=== PATIENT | male | born 1950 | race Caucasian/White ===

== ENCOUNTER 2018-04-15 22:22 | Inpatient (IN) | payer OTHER ==
[~2018-04-15] VITALS: Ht 170.2 cm; Wt 74.4 kg
--- NOTE | 2018-04-15 22:22 | NUR ---
Patient BIBA BLS accompanied by [employer], transferred to bed 8. RN evaluating patient at bedside.
--- NOTE | 2018-04-15 22:26 | NUR ---
Dr. Delgadillo evaluating patient at bedside.
[2018-04-15 22:33] VITALS: BP 95/51
--- NOTE | 2018-04-15 22:38 | NUR ---
PT BIBA FOR POSSIBLE R SHOULDER DISLOCATION. OFFICER VENTURA STATES THAT HE HEARD PT ARM CLICK WHILE HE WAS ATTEMPTING TO PUT PT IN HANDCUFFS FOR THROWING ROCKS AT BUILDINGS. PT COMPLAINS OF 10/10 PAIN IN R ARM, R ARM GRIB WEAK, UNABLE TO LIFT R ARM, PT DENIES TINGLING IN R ARM OR FINGERS, CAP REFIL <3 SEC. NOTE TAKER STATED PT ADMITTED TO DRINKING. PT IS AAOX4, NON-COOPERATIVE, CURSING AT STAFF. SIDE RAILS UP X2, BED IN LOWEST POSITION, HOB ELEVATED. WILL CONTINUE TO MONITOR.
[2018-04-15] MEDS ORDERED: NACL 0.9% 1,000 ML IV ONE (22:45)
--- NOTE | 2018-04-15 22:50 | NUR ---
solids control technician at bedside.
[2018-04-15] MEDS ORDERED: KETAMINE 10 MG/ML UD SYR **ER IVP ONE ×2 (22:55→23:45)
[2018-04-15] MEDS ORDERED: MIDAZOLAM 2 MG/2 ML VIAL IVP ONE (22:55)
[2018-04-15] MEDS ORDERED: MORPHINE SULFATE 4 MG/ML SYR IVP ONE (22:55)
--- NOTE | 2018-04-15 23:05 | NUR ---
CONSENT FOR REDUCTION OF RIGHT HUMERUS FRACTURE DONE AT BEDSIDE AT THIS TIME.
[2018-04-15 23:15] LABS: BASOPHILS % (AUTO) 0.4 % (0.0-2.0); EOSINOPHILS # (AUTO) 0.3 K/uL (0-0.4); EOSINOPHILS % (AUTO) 3.5 % (0.0-4.0); HEMATOCRIT 41.7 % (36-52); LYMPHOCYTES # (AUTO) 4.5 K/uL (2.0-11.5); LYMPHOCYTES % (AUTO) 45.6 % (20.5-51.1); MEAN CORPUSCULAR HEMOGLOBIN 33 pg (27-31); MEAN CORPUSCULAR HGB CONC 34 g/dL (33-37); MEAN CORPUSCULAR VOLUME 97.6 fL (80-94); MONOCYTES # (AUTO) 0.9 K/uL (0.8-1.0); MONOCYTES % (AUTO) 9.2 % (1.7-9.3); NEUTROPHILS # (AUTO) 4.1 K/uL (1.8-7.7); PLATELET COUNT (AUTO) 146 K/uL (140-450); RED BLOOD CELL COUNT(AUTO) 4.27 MIL/uL (4.20-6.10); RED CELL DISTRIBUTION WIDTH 13.3 % (11.6-13.7); WHITE BLOOD COUNT (AUTO) 9.8 K/uL (4.8-10.8)
--- NOTE | 2018-04-15 23:19 | NUR ---
Dr. Delgadillo, RT, RN and EMT at bedside for reduction of right humeral fracture with moderate sedation.
--- NOTE | 2018-04-15 23:20 | NUR ---
BEDSIDE PROCEDURE TIME OUT CALLED. VERRIFIED PT NAME, PROCEDURE, AND LIMB
--- NOTE | 2018-04-15 23:21 | NUR ---
FOR MODERATE SEDATION RECORD AND INTRA-PROCEDURE/RECOVERY SEE MODERATE SEDATION SHEET AND INTRA-PROCEDURE/RECOVERY SHEET.
[2018-04-15 23:24] LABS: ANION GAP 10.4 (8-16); CARBON DIOXIDE 24.7 mmol/L (21-32); POTASSIUM 4.1 mmol/L (3.5-5.1)
[2018-04-15 23:25] LABS: NEUTROPHILS % (AUTO) 41.3 % (42.2-75.2)
--- NOTE | 2018-04-15 23:29 | NUR ---
Fred burrell in ED - 04/15/18 at [address] Delgadillo, RT, RN and EMT at bedside for reduction of right humeral fracture with moderate sedation.
[2018-04-15 23:31] LABS: ALBUMIN 3.7 g/dL (3.4-5.0); TOTAL BILIRUBIN 0.3 mg/dL (0.0-1.0)
--- NOTE | 2018-04-15 23:35 | NUR ---
valve technician at bedside for post-reduction XRAY.
--- NOTE | 2018-04-15 23:36 | NUR ---
Dr. Delgadillo, RT, RN and EMT at bedside for second attempt of reduction of right humeral fracture with moderate sedation.
[2018-04-16] MEDS: NACL 0.9% 1,000 ML IV SCH ×3 (00:55→20:59)
[2018-04-16] MEDS ORDERED: DOCUSATE SODIUM 100 MG GELCAP PO PRN (00:55)
[2018-04-16] MEDS ORDERED: HYDROcodone/APAP 5/325 MG 1 TAB TAB PO PRN (00:55)
[2018-04-16] MEDS ORDERED: MORPHINE SULFATE 2 MG/ML SYR IVP PRN (00:55)
[2018-04-16] MEDS ORDERED: ACETAMINOPHEN 325 MG TAB PO PRN (00:55)
[2018-04-16] MEDS ORDERED: ONDANSETRON 4 MG/2 ML VIAL IM/IVP PRN (00:55)
[2018-04-16] MEDS ORDERED: LORazepam 2 MG/ML VIAL IM/IVP PRN ×2 (00:55)
[2018-04-16] MEDS ORDERED: MULTIVITAMIN-12 10 ML, THIAMINE 100 MG, MAGNESIUM SULFATE 50% 2,000 MG, FOLIC ACID 1 MG... IV SCH ×5 (01:15)
[2018-04-16] MEDS ORDERED: KETAMINE 10 MG/ML UD SYR **ER IVP ONE (01:20)
[2018-04-16 01:30] VITALS: BP 100/44
[2018-04-16 01:30] LABS: PROTHROMBIN TIME 10.2 secs (10.8-13.4)
--- NOTE | 2018-04-16 01:30 | NUR ---
RECEIVED BEDSIDE REPOT FROM SCENE PAINTER, PATIENT IN BED, ON RA, SCREAMING "WHAT AM I DOING HERE?" WHEN EXPLAINED PATIENT STATED "I'M NOT DRUNK, MY ARM AIN'T BROKEN". BP 100/44. PATIENT DENIES PAIN, IV IN LEFT HAND, NOT PATENT, D/C, CATH INTACT, STARTED NEW IV IN LEFT AC, 20 G. MRSA COLLECTED SENT TO LAB. NOTED RIGHT TOE INJURY, PICTURE TAKEN. WILL CONTINUE TO MONITOR.
[2018-04-16 01:37] LABS: PHOSPHORUS 4.7 mg/dL (2.5-4.9); THYROID STIMULATING HORMONE 9.32 uIU/mL (0.34-3.74)
--- NOTE | 2018-04-16 01:43 | NUR ---
Patient will be admitted to care of Tammy MICHEL Admited to TELE. Will go to room 110B. Belongings list completed. Report to [facility].
--- NOTE | 2018-04-16 02:00 | NUR ---
PATIENT WANTS TO LEAVE AMA DUE TO WANTING TO SMOKE CIGARETTE, PER RESIDENT OKAY TO GIVE ATIVAN IF BP ABOVE 100. BP 102/66. WILL NOT GIVE ATIVAN. WILL PLACE ON 1:1 SITTER.
--- NOTE | 2018-04-16 02:30 | NUR ---
CALL FROM PHARMACY REGARDING BANANA BAG, MG 2.0. DR KRAMER, STATED OKAY TO GIVE BANANA BAG. WILL GIVE.
[2018-04-16] MEDS ORDERED: MULTIVITAMIN-12 10 ML VIAL IV ONE (02:34)
[2018-04-16] MEDS ORDERED: FOLIC ACID 5 MG/ML SYR ONE (02:34)
[2018-04-16] MEDS ORDERED: THIAMINE 200 MG/2 ML VIAL ONE (02:34)
--- NOTE | 2018-04-16 02:45 | NUR ---
PATIENT REFUSED TO GIVE URINE SAMPLE FOR UA ANS DRUG SCREEN. DR KRAMER. PATIENT REFUSED DRUG SCREEN.
[2018-04-16] MEDS ORDERED: MAG SULF 2000 MG/WATER PREMIX 50 ML IV ONE (02:51)
[2018-04-16] MEDS ORDERED: MULTIVITAMIN-12 10 ML, THIAMINE 100 MG, FOLIC ACID 1 MG in NACL 0.9% 1,000 ML IV SCH (02:55)
[2018-04-16] MEDS ORDERED: MAG SULF 2000 MG/WATER PREMIX 50 ML IV SCH (03:00)
--- NOTE | 2018-04-16 03:14 | NUR ---
PT HAD ORDER FOR BANANA BAG.PHARMACY CALLED AND TALKED TO ROBER RN PT'S NURSE THAT BECAUSE PT'S MAG LEVEL IS 2.0 SO CAN NOT HAVE MAG.MAG IS ONE OF THE BANANA BAG'S CONTENT.ROBER ASKED OF RESIDENT.SHE SAID GIVE IT TO PT.AFTER WE MIXED BANANA BAG THAT HAS MAG ALSO.PHARMACY TOOK OUT MAG FROM BANANA BAG.I ASKED IF NEEDS MIX ANOTHER BAG WITHOUT MAG.BUT SHE SAID THAT'S OK GIVE BANANA BAG THAT YOU ALREADY MIX IT.ROBER STARTED THAT.
--- NOTE | 2018-04-16 03:50 | NUR ---
RESIDENT STATED OKAY TO START BANANA BAG AT 50 ML/HR.
[2018-04-16 04:00] VITALS: BP 106/66
--- NOTE | 2018-04-16 04:10 | NUR ---
PATIENT REFUSED TO GIVE URINE SAMPLE AND WEAR SCD. PATIENT REFUSED TO DO ORTHOSTATIC EXAM. STATED "THERE'S NOTHING WRONG WITH MY HEART GOD DAMMIT!".
--- NOTE | 2018-04-16 05:52 | NUR ---
PATIENT ASLEEP IN BED, NO SIGNS OF DISTRESS WILL CONTINUE TO MONITOR.
--- NOTE | 2018-04-16 06:55 | NUR ---
PATIENT REFUSED TO GO TO HAVE CT SCAN AT THIS TIME. CALLED RADIOLOGY WILL TRY AGAIN AFTER BREAKFAST. US SAMPLE COLLECTED.
[2018-04-16 07:31] LABS: BASOPHILS % (AUTO) 0.2 % (0.0-2.0); EOSINOPHILS % (AUTO) 0.3 % (0.0-4.0); HEMATOCRIT 40.1 % (36-52); HEMOGLOBIN 13.5 g/dL (12.0-18.0); LYMPHOCYTES # (AUTO) 2.6 K/uL (2.0-11.5); LYMPHOCYTES % (AUTO) 27.2 % (20.5-51.1); MEAN CORPUSCULAR HEMOGLOBIN 33 pg (27-31); MEAN CORPUSCULAR HGB CONC 34 g/dL (33-37); MONOCYTES # (AUTO) 0.7 K/uL (0.8-1.0); MONOCYTES % (AUTO) 7.9 % (1.7-9.3); NEUTROPHILS # (AUTO) 6.1 K/uL (1.8-7.7); NEUTROPHILS % (AUTO) 64.4 % (42.2-75.2); PLATELET COUNT (AUTO) 140 K/uL (140-450); RED BLOOD CELL COUNT(AUTO) 4.09 MIL/uL (4.20-6.10); RED CELL DISTRIBUTION WIDTH 13.1 % (11.6-13.7); WHITE BLOOD COUNT (AUTO) 9.5 K/uL (4.8-10.8)
--- NOTE | 2018-04-16 07:32 | NUR ---
ENDORSED PATIENT TO DAY SHIFT NURSE, PATIENT STABLE.
[2018-04-16 07:34] LABS: APPEARANCE,URINE CLEAR (CLEAR); BILIRUBIN,URINE NEGATIVE (NEGATIVE); BLOOD, URINE NEGATIVE (NEGATIVE); COLOR,URINE YELLOW (YELLOW); LEUKOCYTE ESTERASE ,URINE NEGATIVE (NEGATIVE); NITRITE, URINE NEGATIVE (NEGATIVE); UGLUCOSE NEGATIVE (NEGATIVE)
[2018-04-16 07:45] LABS: ANION GAP 15.6 (8-16); CARBON DIOXIDE 21.2 mmol/L (21-32); CREATININE 0.9 mg/dL (0.7-1.3); POTASSIUM 4.8 mmol/L (3.5-5.1)
[2018-04-16 07:47] LABS: BARBITURATE, URINE NEG. ng/ml (NEG <=200); BENZODIAZEPINE, URINE POS. ng/mL (NEG <=200); CANNABINOID, URINE NEG. ng/mL (NEG <=50); COCAINE, URINE NEG. ng/mL (NEG <=300); OPIATE, URINE NEG. ng/mL (NEG <=2000); PHENCYCLIDINE SCREEN,URINE NEG. ng/mL (NEG <=25)
[2018-04-16 07:57] LABS: PHOSPHORUS 4.4 mg/dL (2.5-4.9)
[2018-04-16 08:00] VITALS: BP 120/63
--- NOTE | 2018-04-16 08:00 | NUR ---
PATIENT WAS AWAKE, ALERT, EATING BREAKFAST COMFORTABLY. RESPIRATION EVEN, UNLABOR ON ROOM AIR. SKIN DRY AND WARM. IV PATENT AND INTACT. COMPLAINED OF RIGHT ARM PAIN 8/10, WILL MEDICATE PER ORDER. PLAN OF CARE WAS DISCUSSED WITH PATIENT. BED AT LOW POSITION, SIDE RAILS UP. CALL LIGHT WITHIN REACH. 1:1 SITTER ENSURED
[2018-04-16] MEDS: NICOTINE TRANSD SYS 7 MG/24 HR PATCH TD SCH (09:00)
[2018-04-16] MEDS ORDERED: FOLIC ACID 1 MG TAB PO SCH (09:00)
[2018-04-16] MEDS ORDERED: MULTIVITAMIN 1 TAB PO SCH (09:00)
[2018-04-16] MEDS ORDERED: THIAMINE 200 MG/2 ML VIAL IM SCH (09:00)
[2018-04-16] MEDS: chlordiazePOXIDE 25 MG CAP PO SCH ×3 (09:33→16:36)
[2018-04-16] MEDS: MORPHINE SULFATE 2 MG/ML SYR IVP PRN (09:34)
--- NOTE | 2018-04-16 10:00 | NUR ---
PATIENT WAS SLEEPING COMFORTABLY. RESPIRATION EVEN, UNLABOR ON ROOM AIR. NO DISTRESS NOTED AT THIS TIME
[2018-04-16 12:00] VITALS: BP 105/57
--- NOTE | 2018-04-16 12:27 | NUR ---
PATIENT WAS AWAKE, EATING LUNCH COMFORTABLY. RESPIRATION EVEN, UNLABOR ON ROOM AIR. NO DISTRESS NOTED AT THIS TIME. DENIED PAIN, SOB. CALL LIGHT WITHIN REACH.
--- NOTE | 2018-04-16 13:35 | NUR ---
pt sleeping left IS at bedside
[2018-04-16] MEDS: NEOMYCIN/POLYMYXIN/BACITRACIN OIN 15 GM TUBE TP SCH (13:49)
--- NOTE | 2018-04-16 13:52 | NUR ---
WOUND CARE WAS GIVEN PER ORDER. PATIENT TOLERATED WELL
[2018-04-16 16:00] VITALS: BP 126/65
[2018-04-16 16:06] LABS: HEMATOCRIT 39.5 % (36-52); HEMOGLOBIN 13.4 g/dL (12.0-18.0)
--- NOTE | 2018-04-16 16:15 | NUR ---
PATIENT WAS RESTING COMFORTABLY. RESPIRATION EVEN, UNLABOR ON ROOM AIR. DENIED PAIN, SOB AT THIS TIME. NO DISTRESS NOTED. 1:1 SITTER ENSURE. CALL LIGHT WITHIN REACH
--- NOTE | 2018-04-16 18:05 | NUR ---
PATIENT WAS ASSISTED TO AMBULATE TO BATHROOM, AMBULATORY WITH STEADY GAIT. NO DISTRESS NOTED. IV PATENT AND INTACT. CALL LIGHT WITHIN REACH
--- NOTE | 2018-04-16 19:11 | NUR ---
ENDORSEMENT GIVEN TO PAPER AND PRINTS RESTORER NURSE. PATIENT IS STABLE AT THIS TIME
--- NOTE | 2018-04-16 19:11 | NUR ---
RECEIVED BEDSIDE REPORT FROM CAMRYN PIERSON, PATIENT SLEEPING IN BED, NO SIGNS OF DISTRESS. IV IN LEFT AC 20 G INFUSING BANANA BAG AT 50 ML/HR. BED IN LOWEST POSITION, CALL LIGHT WITHIN REACH, BED ALARM ON. V/S TAKEN ALL WITHIN BASELINE. WILL START NS AT 100 ML ONCE BANANA BAG COMPLETED. WILL CONTINUE TO MONITOR.
[2018-04-16 20:00] VITALS: BP 118/75
--- NOTE | 2018-04-16 21:29 | NUR ---
PATIENT SLEEPING IN BED NO SIGNS OF DISTRESS. WILL CONTINUE TO MONITOR.
--- NOTE | 2018-04-16 23:45 | NUR ---
PATIENT SLEEPING IN BED, NO SIGNS OF DISTRESS, V/S TAKEN ALL WITHIN BASELINE.
[2018-04-17] VITALS: BP 119/58
[2018-04-17] MEDS: MORPHINE SULFATE 2 MG/ML SYR IVP PRN ×4 (01:00→21:33)
--- NOTE | 2018-04-17 01:00 | NUR ---
WOUND ASSESSMENT COMPLETED, LEFT TOE BED IS DRY, MANAGER ACADEMIC, PATIENT DENIES PAIN. PATIENT C/O 9/10 RIGHT ARM PAIN. WILL MEDICATE WITH MORPHINE FOR SEVERE PAIN. BP 119/68 HR 58 RR 14.
[2018-04-17 03:54] VITALS: BP 125/70
--- NOTE | 2018-04-17 04:03 | NUR ---
V/S TAKEN ALL WITHIN BASELINE. PATIENT SLEEPING IN BED NO SIGNS OF ACUTE DISTRESS. CALL LIGHT WITHIN REACH, BED ALARM ON.
--- NOTE | 2018-04-17 05:17 | NUR ---
PT DENIED INCENTIVE SPIROMETRY.
--- NOTE | 2018-04-17 05:28 | NUR ---
PATIENT C/O 9/10 RIGHT ARM PAIN. WILL MEDICATE WITH MORPHINE FOR SEVERE PAIN.
[2018-04-17] MEDS: NACL 0.9% 1,000 ML IV SCH ×2 (05:41→09:32)
--- NOTE | 2018-04-17 06:23 | NUR ---
PATIENT HAS BEEN SCREENED AND CATEGORIZED MODERATE NUTRITION RISK. PATIENT WILL BE SEEN WITHIN 3-5 DAYS OF ADMISSION. 04/18/18-04/20/18 KACEY LAGUERRE MS, RDN
[2018-04-17 07:18] LABS: CARBON DIOXIDE 27.4 mmol/L (21-32); CREATININE 0.8 mg/dL (0.7-1.3); POTASSIUM 4.4 mmol/L (3.5-5.1)
[2018-04-17 07:28] LABS: CHOL/HDL RATIO 2.9 (1-4.5)
--- NOTE | 2018-04-17 07:28 | NUR ---
ENDORSED PATIENT TO DAY SHIFT NURSE, PATIENT STABLE.
--- NOTE | 2018-04-17 07:29 | NUR ---
RECEIVED BEDSIDE REPORT FROM REPAIRER GENERAL NURSE. PATIENT IS AOX4. NO SIGNS OF DISTRESS NOTED. RA. SKIN WARM, CLEAN AND DRY. IV LAC 20G,INTACT AND PATENT, INFUSING IVF PER MD ORDER. IV SITE CLEAN AND DAY. MINIMAL ASSISTANCE FOR FEEDING AND AMBULATION. REVIEWED PLAN OF CARE WITH PATIENT, PATIENT VERBALIZED UNDERSTANDING. SAFETY MEASURES IN PLACE. BED IN LOW POSITION, CALL LIGHT WITHIN REACH. WILL CONTINUE TO MONITOR.
[2018-04-17 07:45] LABS: BASOPHILS % (AUTO) 0.6 % (0.0-2.0); EOSINOPHILS # (AUTO) 0.2 K/uL (0-0.4); EOSINOPHILS % (AUTO) 3.6 % (0.0-4.0); HEMATOCRIT 40.4 % (36-52); HEMOGLOBIN 13.5 g/dL (12.0-18.0); LYMPHOCYTES # (AUTO) 2.1 K/uL (2.0-11.5); LYMPHOCYTES % (AUTO) 36.7 % (20.5-51.1); MEAN CORPUSCULAR HEMOGLOBIN 33 pg (27-31); MEAN CORPUSCULAR HGB CONC 33 g/dL (33-37); MEAN CORPUSCULAR VOLUME 98.4 fL (80-94); MONOCYTES # (AUTO) 0.7 K/uL (0.8-1.0); MONOCYTES % (AUTO) 11.4 % (1.7-9.3); NEUTROPHILS # (AUTO) 2.8 K/uL (1.8-7.7); NEUTROPHILS % (AUTO) 47.7 % (42.2-75.2); PLATELET COUNT (AUTO) 131 K/uL (140-450); RED CELL DISTRIBUTION WIDTH 13.1 % (11.6-13.7); WHITE BLOOD COUNT (AUTO) 5.8 K/uL (4.8-10.8)
[2018-04-17 08:00] VITALS: BP 148/88
[2018-04-17 08:17] LABS: T4 (THYROXINE) 6.5 ug/dL (4.5-12.0)
[2018-04-17] MEDS: chlordiazePOXIDE 25 MG CAP PO SCH ×3 (08:51→18:12)
[2018-04-17] MEDS: NICOTINE TRANSD SYS 7 MG/24 HR PATCH TD SCH (08:54)
--- NOTE | 2018-04-17 08:54 | NUR ---
ADMINISTERED MEDS PER MD ORDER. PATIENT TOLERATED WELL. PT REFUSED THE NICOTINE PATCH AND STATED "IT DOESN'T WORK FOR ME. AND I DONT NEED THAT." WILL CONTINUE TO MONITOR.
--- NOTE | 2018-04-17 11:15 | NUR ---
PATIENT IS RESTING ON BED. DENIES PAIN. NO SIGNS OF DISTRESS NOTED. WILL CONTINUE TO MONITOR.
[2018-04-17 12:00] VITALS: BP 120/70
--- NOTE | 2018-04-17 13:45 | NUR ---
CLEANSED L TOE WOUND AND APPLIED MED PER ORDER. APPLIED DRY DRESSING AROUND L BIG TOE. PATIENT TOLERATED WELL. DENIED PAIN. SAFETY MEASURES IN PLACE. WILL CONTINUE TO MONITOR.
[2018-04-17] MEDS: NEOMYCIN/POLYMYXIN/BACITRACIN OIN 15 GM TUBE TP SCH (15:04)
--- NOTE | 2018-04-17 15:38 | NUR ---
[facility] CALLED AT [phone], SPOKE WITH [facility] ([facility]), PATIENT INFORMATION AND REQUEST FOR TRANSFER SHOULD BE FAXED TO [facility] AT [phone], AND FOLLOW UP WITH A PHONE CALL ON WEDNESDAY MORNING @ [phone] [phone], [facility] STATES PER [facility]OSPITAL SUBSTITUTE NURSE EHS[facility], INPT TO INPT TRANSFER CAN NOT BE ACCEPTED OVER THE WEEKEND, TRANSFER CENTER WILL PROCESS REQUEST AND FIND AN ORTHOPEDIC ACCEPTING DOCTOR ON WEDNESDAY, DURING THE WEEKEND THEY CAN ONLY ACCEPT ER TO ER TRANSFERS. FACE SHEET, H&P, X RAY REPORT, TRANSFER ORDER FAXED TO [phone].
[2018-04-17 16:00] VITALS: BP 114/63
--- NOTE | 2018-04-17 18:16 | NUR ---
ADMINISTERED MEDS PER MD ORDER. ASSISTED PATIENT BACK ON BED AFTER DINNER. PATIENT TOLERATED WELL. NO SIGNS OF DISTRESSED NOTED. SAFETY MEASURES IN PLACE.
--- NOTE | 2018-04-17 19:15 | NUR ---
BEDSIDE REPORT GIVEN TO FIGURE CLERK NURSE FOR CONTINUITY OF CARE. PATIENT IS IN STABLE CONDITION.
--- NOTE | 2018-04-17 19:20 | NUR ---
RECEIVED PT FROM SHARON RN PT AAOX4 ON BED REST RT HUMERUS FRACTURE, IV ON LEFT AC INFUSING WELL ON TELEMETRY SR, INITIAL ASSESSMENT DONE
[2018-04-17 20:00] VITALS: BP 159/54
[2018-04-17] MEDS ORDERED: FAMOTIDINE 20 MG TAB PO SCH (21:00)
--- NOTE | 2018-04-17 23:00 | NUR ---
AFTER PAIN MEDIC GIVEN PT SLEEPING WELL NOT SIGNS OF PAIN ON TELEMETRY SR
[2018-04-18] VITALS: BP 139/68
--- NOTE | 2018-04-18 02:13 | NUR ---
PT IS ASSISTED TO THE RESTROOM ON TELEMETRY SR
[2018-04-18 04:00] VITALS: BP 134/62
--- NOTE | 2018-04-18 04:00 | NUR ---
SPONGE BATH GIVEN LINEN CHANGED NOT DISTRESS NOTES AT THIS TIME
--- NOTE | 2018-04-18 06:51 | NUR ---
PT WILL BE ENDORSED TO DAY SHIFT NURSE FOR CONTINUITY OF CARE
[2018-04-18 07:16] LABS: BASOPHILS # (AUTO) 0.1 K/uL (0.00-0.22); BASOPHILS % (AUTO) 1.1 % (0.0-2.0); EOSINOPHILS # (AUTO) 0.3 K/uL (0-0.4); EOSINOPHILS % (AUTO) 4.7 % (0.0-4.0); HEMATOCRIT 40.7 % (36-52); HEMOGLOBIN 13.7 g/dL (12.0-18.0); LYMPHOCYTES % (AUTO) 35.2 % (20.5-51.1); MEAN CORPUSCULAR HEMOGLOBIN 33 pg (27-31); MEAN CORPUSCULAR HGB CONC 34 g/dL (33-37); MEAN CORPUSCULAR VOLUME 98.1 fL (80-94); MONOCYTES # (AUTO) 0.7 K/uL (0.8-1.0); MONOCYTES % (AUTO) 11.9 % (1.7-9.3); NEUTROPHILS # (AUTO) 2.7 K/uL (1.8-7.7); NEUTROPHILS % (AUTO) 47.1 % (42.2-75.2); PLATELET COUNT (AUTO) 122 K/uL (140-450); RED BLOOD CELL COUNT(AUTO) 4.15 MIL/uL (4.20-6.10); RED CELL DISTRIBUTION WIDTH 13.4 % (11.6-13.7); WHITE BLOOD COUNT (AUTO) 5.6 K/uL (4.8-10.8)
--- NOTE | 2018-04-18 07:30 | NUR ---
RECEIVED PT ON BED AAOX4. NO SOB NOTED, NO C/O PAIN AT THIS TIME. IV TO LT AC PATENT AND INTACT. RT ARM SLING IN PLACE, ELEVATED WITH PILLOW. CHEST, DIMINISHED AIR ENTRY TO THE BASES, ABDOMEN SOFT, BOWEL SOUNDS PRESENT. BED ALARM ON, AND ON LOWEST POSITION. INSTRUCTED PT TO CALL FOR ASSISTANCE, CALL LIGHT WITHIN REACH, PT VERBALIZED UNDERSTANDING.
[2018-04-18 07:38] LABS: ANION GAP 10.4 (8-16); CARBON DIOXIDE 26.6 mmol/L (21-32); CREATININE 0.8 mg/dL (0.7-1.3)
[2018-04-18 08:00] VITALS: BP 145/77
--- NOTE | 2018-04-18 08:39 | NUR ---
SPOKE WITH STEPHANY AT [facility], [phone]. HE ASKED ME TO FAX THE XRAY RESULT. FAXED THEM AND THE ER REPORT TO [facility] [phone]. I CALLED THE TRANSFER CENTER AND SPOKE WITH MARIA DOLORES. SHE SAID THAT THIS IS A TRAUMA AND THAT SHE WOULDN'T BE ABLE TO GIVE THIS PATIENT TO HER DOCTORS. SHE SUGGEST THAT THE PATIENT BE TRANSFERED TO HIGHER LEVEL OF CARE OF IF STABLE, TO BE DISCHARGED FROM HERE TO GO THE THE [facility] ER DIRECTLY WITH THE XRAY DISC. I INFORMED DR. SANCHEZ AND GAVE HIM THE PHONE NUMBER TO THE [facility] TO CALL.
[2018-04-18] MEDS: NICOTINE TRANSD SYS 7 MG/24 HR PATCH TD SCH (09:00)
[2018-04-18] MEDS: chlordiazePOXIDE 25 MG CAP PO SCH ×2 (09:00→12:33)
--- NOTE | 2018-04-18 09:15 | NUR ---
CALLED [facility] AND SPOKE WITH PAINT PREP TECHNICIAN, WEI. SHE WILL CALL ME BACK TO WHETHER THEY HAVE AN ORTHO.
--- NOTE | 2018-04-18 09:45 | NUR ---
Morphine 2mg ivp given as prn for rt arm pain 8/10 on pain scale. ( med was scanned, but was not saved.)
[2018-04-18] MEDS: NACL 0.9% 1,000 ML IV SCH (09:50)
--- NOTE | 2018-04-18 10:05 | NUR ---
WOUND CARE EVALUATION NOTE: PT. IS VERY ANXIOUS OF HIS SHOULDER FX AND NOT UNDERSTAND WHY AM I HERE CHECKING HIS SKIN, REFUSED TO TURN AND HEAD TO TOE SKIN ASSESSMENT, ONLY TO SEE HIS LEFT FOOT. WOUND ASSESSMENT TO LEFT FIRST TOE, TOE NAIL OFF, SKIN INTACT, NAIL BED IS DRY AND COVER WITH THIN LAYER OF DRY SCAB. NO OPEN WOUND, RECOMMENDATION TO PAINT AREA WITH BETADINE SOLUTION BID AND LEAVE IT OPEN TO AIR. ALSO EXPLAIN TO PT. THAT DOCTOR IS WORKING ON HIS SHOULDER FX.
[2018-04-18] MEDS ORDERED: ACET-1182 PO (11:01)
[2018-04-18] MEDS ORDERED: LIB25 PO (11:01)
[2018-04-18] MEDS ORDERED: ATI2I IM/IVP (11:01)
[2018-04-18] MEDS ORDERED: FAMO20TA13 PO (11:01)
[2018-04-18] MEDS ORDERED: DOCU-299 PO (11:01)
[2018-04-18] MEDS ORDERED: MORP2SOL18 IVP (11:01)
[2018-04-18] MEDS ORDERED: NICO1PAT64 TD (11:01)
[2018-04-18] MEDS ORDERED: ONDA2SOL45 IM/IVP (11:01)
[2018-04-18] MEDS ORDERED: ACET-9525 PO (11:01)
[2018-04-18] MEDS ORDERED: OMEP20TC12 PO (11:02)
[2018-04-18 12:00] VITALS: BP 130/78
--- NOTE | 2018-04-18 12:31 | NUR ---
PER REQUEST OF DISTRICT HOME ECONOMICS AGENT, I LEFT 2 MESSAGES WITH THE ELECTRICIAN CONTROL EQUIPMENTSPECIAL OFFICER, NO CALL BACK. I CALLED THE INTERNATIONAL EDITORIAL PRODUCER AGAIN AT [place]. SHE REQUESTED FACE SHEET FAXED TO HER AT [phone], WHICH I DID.
[2018-04-18] MEDS ORDERED: MILD SOAP AND WATER TP SCH (13:00)
[2018-04-18] MEDS: NEOMYCIN/POLYMYXIN/BACITRACIN OIN 15 GM TUBE TP SCH (13:00)
--- NOTE | 2018-04-18 13:00 | NUR ---
RECEIVED A CALL FROM WEI AT [facility]. SHE SAID THEY DO NOT HAVE AN ORTHO THAT WORK ON UPPER EXTREMITIES, ONLY LOWER. SHE ALSO SAID THAT CM SAID THEY DO NOT TAKE VA. Addendum: 04/18/18 at [address] Kel[address] INFOR[address] DR[address] SALDAÑA.
--- NOTE | 2018-04-18 13:59 | NUR ---
CALLED MARIA DOLORES FROM [facility] AND INFORMED HER THAT [facility] FERRARO SAID [facility] DON'T TAKE ID. SHE SAID TO TRY THE [facility], [place], [facility], [facility], [facility] AND [facility]. I CALLED [facility] AND THEY SAID THEY WOULD NEED A HARD COPY. I CALLED Erasto RANGEL AT [facility] AND HE SAID THEY DON'T GIVE A HARD COPY. I CALLED [facility] BACK AND WAS TOLD THEY WOULD CONTACT [facility]. I GAVE THEM THE NUMBER.
--- NOTE | 2018-04-18 14:34 | NUR ---
CALLED [facility] AND SPOKE WITH BIJAL RANGEL. THEY SUGGESTED THAT IF THE PATIENT IS DISCHARGE HOME, HE SHOULD FOLLOW UP AT THE [facility], [id number] [facility] [id number] TOMORROW. SUGGESTS THAT HE GETS THERE AT 8A.M. TO BE SEEN IN THE ER. BRING DISC FROM XRAY WITH HIM.
[2018-04-18] MEDS ORDERED: FAMOTIDINE 20 MG TAB PO SCH (21:00)
--- NOTE | 2018-04-19 06:48 | NUR ---
Late Entry. THe end time on the Morphine 2mg push IV should read 8113 not 0259.
== END 2018-04-18 17:10 | disposition home or self-care (01) | DRG 542 ==
LOC: MED 22:22 → MTU 04-16 01:05
PROVIDERS: ADMIT General Practice; ATTEND General Practice
PROC: 0RSJXZZ Reposition Right Shoulder Joint, External Approach (ICD-10-PCS; principal; 2018-04-15)
DX: M84.421A Pathological fracture, right humerus, initial encounter for fracture (principal); G92 Toxic encephalopathy; E87.1 Hypo-osmolality and hyponatremia; G90.8 Other disorders of autonomic nervous system; Y90.8 Blood alcohol level of 240 mg/100 ml or more; K21.9 Gastro-esophageal reflux disease without esophagitis; S40.011A Contusion of right shoulder, initial encounter; F10.129 Alcohol abuse with intoxication, unspecified; F19.10 Other psychoactive substance abuse, uncomplicated; Z60.2 Problems related to living alone; I73.9 Peripheral vascular disease, unspecified; Z87.891 Personal history of nicotine dependence; X58.XXXA Exposure to other specified factors, initial encounter; Y93.89 Activity, other specified; Y92.89 Other specified places as the place of occurrence of the external cause; Y99.8 Other external cause status
CPT/HCPCS: 36415; 70450; 71045; 73030; 73060; 80048; 80053; 80305; 81003; 82140; 82150; 83036; 83690; 83735; 83880; 84100; 84436; 84443; 84484; 85018; 85025; 85610; 85730; 87081; 93005; 93880; 96361; 96374; 99285; A9153; G0482; J2250; J2270; J3411; J3475; J3490; J7030; Q0092